=== PATIENT | female | born 2000 | race Caucasian/White ===

== ENCOUNTER 2019-04-13 09:37 | Emergency (ER) | payer OTHER ==
[~2019-04-13] VITALS: Ht 157.5 cm; Wt 86.5 kg
--- NOTE | 2019-04-13 09:58 | NUR ---
ASSUMED CARE OF PT FROM [facility]. PT C/O GREY, WORSE THAN HER USUAL GREY IN THAT IT HAS LASTED 9 DAYS. CHART UP FOR .
[2019-04-13] MEDS ORDERED: KETOROLAC 30 MG/1 ML ONE (10:25)
[2019-04-13] MEDS ORDERED: DIPHENHYDRAMINE 50 MG/ML, 1ML ONE (10:25)
[2019-04-13] MEDS ORDERED: PROCHLORPERAZINE 5 MG/ML, 2ML ONE (10:25)
[2019-04-13] MEDS ORDERED: SODIUM CHLORIDE FLUSH 10ML SYR IVF ONE (10:30)
[2019-04-13] MEDS ORDERED: PROCHLORPERAZINE 5 MG/ML, 2ML IVPush ONE (10:30)
[2019-04-13] MEDS ORDERED: DIPHENHYDRAMINE 50 MG/ML, 1ML IVPush ONE (10:30)
[2019-04-13] MEDS ORDERED: KETOROLAC 30 MG/1 ML IVPush ONE (10:30)
--- NOTE | 2019-04-13 11:20 | NUR ---
PT TO CT
[2019-04-13 11:42] VITALS: BP 96/67
--- NOTE | 2019-04-13 11:42 | NUR ---
CHART UP FOR MD RECHECK. PT SLEEPING IN NAD. VSS.
== END 2019-04-13 12:05 | disposition home or self-care (01) ==
LOC: ED 11:48
DX: R51 Headache (principal); J45.909 Unspecified asthma, uncomplicated; F17.200 Nicotine dependence, unspecified, uncomplicated
CPT/HCPCS: 36415; 70450; 84703; 96374; 96375; 99284; J0780; J1200; J1885

== ENCOUNTER 2019-09-01 19:47 | Emergency (ER) | payer BC ==
[~2019-09-01] VITALS: Ht 157.5 cm; Wt 86.9 kg
[2019-09-01] MEDS ORDERED: ONDANSETRON ODT 8 MG PO STA (20:26)
[2019-09-01 20:45] LABS: BASOPHILS # (AUTO) 0.03 x10^3/uL (0-0.3); BASOPHILS % (AUTO) 0 % (0-1); EOSINOPHILS # (AUTO) 0.07 x10^3/uL (0-0.8); EOSINOPHILS % (AUTO) 1 % (1-7); LYMPHOCYTES # (AUTO) 2.61 x10^3/uL (1-6.1); LYMPHOCYTES % (AUTO) 26 % (22-44); MD NO; MEAN CORPUSCULAR HEMOGLOBIN 28.3 pg (27.0-34.8); MEAN CORPUSCULAR HGB CONC 32.4 g/dL (32.4-35.8); MEAN CORPUSCULAR VOLUME 87.4 fL (80-100); MEAN PLATELET VOLUME 7.9 fL (7.4-10.4); MONOCYTES # (AUTO) 0.62 x10^3/uL (0-1.4); MONOCYTES % (AUTO) 6 % (2-9); NEUTROPHILS # (AUTO) 6.75 x10^3/uL (1.8-8.0); NEUTROPHILS % (AUTO) 67 % (42-75); PLATELET COUNT 319 x10^3/uL (130-400); RED CELL DISTRIBUTION WIDTH 14.1 % (9.6-15.2)
[2019-09-01 20:56] LABS: ALANINE AMINOTRANSFERASE 19 U/L (12-78); ALBUMIN 3.5 g/dL (3.4-5.0); ANION GAP 5 mmol/L (5-15); CALCIUM 9.1 mg/dL (8.5-10.1); CHLORIDE 111 mmol/L (98-107); CREATININE 0.86 mg/dL (0.55-1.02)
[2019-09-01 20:58] LABS: ALKALINE PHOSPHATASE 76 U/L (45-117); BILIRUBIN,TOTAL 0.5 mg/dL (0.2-1.0); TOTAL PROTEIN 7.2 g/dL (6.4-8.2)
--- NOTE | 2019-09-01 21:01 | NUR ---
pt to room from lobby
[2019-09-01] MEDS ORDERED: ONDANSETRON ODT 8 MG ONE (21:08)
[2019-09-01 21:38] LABS: HCG UR SG 1.028 (1.003-1.030); MICROSCOPIC AUTO
[2019-09-01 21:39] LABS: CULTURE INDICATED? YES
[2019-09-01] MEDS ORDERED: ONDANSETRON ODT 4 MG ONE (21:59)
[2019-09-01] MEDS ORDERED: HYDROcodone/APAP 5/325 TABLET ONE (21:59)
[2019-09-01] MEDS ORDERED: ONDANSETRON ODT 4 MG PO ONE (22:00)
[2019-09-01] MEDS ORDERED: HYDROcodone/APAP 5/325 TABLET PO ONE (22:00)
--- NOTE | 2019-09-01 22:22 | NUR ---
PT AND LAYING ON GURNEY TOGETHER. PT MEDICATED FOR PAIN AND AWARE SHE IS GOING TO US SOON.
--- NOTE | 2019-09-01 22:42 | NUR ---
PT RETURNED FROM US WITH TECH.
[2019-09-01 23:14] VITALS: BP 94/46
== END 2019-09-01 23:51 | disposition home or self-care (01) ==
LOC: ED 21:17
DX: R10.11 Right upper quadrant pain (principal); R11.2 Nausea with vomiting, unspecified; F17.200 Nicotine dependence, unspecified, uncomplicated; J45.909 Unspecified asthma, uncomplicated
CPT/HCPCS: 36415; 76700; 80053; 81001; 81025; 83690; 85025; 87086; 99284; Q0162

== ENCOUNTER 2020-03-31 16:33 | Emergency (ER) | payer BC, OTHER ==
[~2020-03-31] VITALS: Ht 157.5 cm; Wt 86.5 kg
[2020-03-31] MEDS ORDERED: LIDOCAINE 1%, 10ML INFIL ONE (17:30)
--- NOTE | 2020-03-31 18:28 | NUR ---
Pt to room from lobby.
[2020-03-31] MEDS ORDERED: NEOSPORIN OINT. PKT 1 PACKET ONE ×2 (18:37→18:47)
[2020-03-31] MEDS ORDERED: LIDOCAINE-MPF 1%, 5ML ONE (18:52)
--- NOTE | 2020-03-31 19:00 | NUR ---
PROVIDER IN TO SUTURE.
[2020-03-31 19:31] VITALS: BP 125/77
== END 2020-03-31 20:07 | disposition home or self-care (01) ==
LOC: ED 19:45
DX: S61.012A Laceration without foreign body of left thumb without damage to nail, initial encounter (principal); J45.909 Unspecified asthma, uncomplicated; F17.200 Nicotine dependence, unspecified, uncomplicated; W26.0XXA Contact with knife, initial encounter; Y93.89 Activity, other specified; Y92.69 Other specified industrial and construction area as the place of occurrence of the external cause; Y99.8 Other external cause status
CPT/HCPCS: 12001; 99282

== ENCOUNTER 2020-04-03 12:59 | Emergency (ER) | payer OTHER ==
[~2020-04-03] VITALS: Ht 157.5 cm; Wt 87.3 kg
[2020-04-03 13:01] VITALS: BP 122/68
--- NOTE | 2020-04-03 13:24 | NUR ---
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
[2020-04-03] MEDS ORDERED: KETOROLAC 30 MG/1 ML ONE (13:50)
[2020-04-03] MEDS ORDERED: KETOROLAC 30 MG/1 ML IM ONE (14:00)
== END 2020-04-03 14:25 | disposition home or self-care (01) ==
LOC: ED 14:10
DX: S61.012D Laceration without foreign body of left thumb without damage to nail, subsequent encounter (principal); X58.XXXD Exposure to other specified factors, subsequent encounter
CPT/HCPCS: 29125; 99283

== ENCOUNTER 2020-04-06 12:54 | Emergency (ER) | payer OTHER ==
[~2020-04-06] VITALS: Ht 157.5 cm; Wt 86.6 kg
[2020-04-06 13:06] VITALS: BP 120/74
--- NOTE | 2020-04-06 13:19 | NUR ---
Pt here for recheck of right arm splint. Pt reports pain and swelling and that she cant feel her thumb and index finger. cms intact at this time.
--- NOTE | 2020-04-06 13:23 | NUR ---
Splint cut off and removed.
--- NOTE | 2020-04-06 13:27 | NUR ---
ERP provider to bedside to remove stitches.
--- NOTE | 2020-04-06 14:00 | NUR ---
attempted to dc pt and pt states "I need an Ortho, I can't feel my hand and she's not doing anything", PA Poli notified, PA at bedside to perform sensation test and pt states "OW", pt instructed to increase range of motion and not to wear splint and to return if sxs worsen or do not improve. Pt began yelling at staff and at PA, "Get the fuck out of here, I don't want you in this room, I want an Ortho, I want a list of everyone who was in this room, I'm calling my mom", pt began to call and security notified of pts escilating behavior. Security at bedside to escort pt from hospital.
== END 2020-04-06 14:22 | disposition home or self-care (01) ==
LOC: ED 14:22
DX: S61.012D Laceration without foreign body of left thumb without damage to nail, subsequent encounter (principal); Z48.00 Encounter for change or removal of nonsurgical wound dressing; F17.200 Nicotine dependence, unspecified, uncomplicated; X58.XXXD Exposure to other specified factors, subsequent encounter
CPT/HCPCS: 36415; 99282